=== PATIENT | female | born 1970 | race African-American/Black ===

== ENCOUNTER 2016-12-01 08:44 | Emergency (ER) | payer OTHER ==
[~2016-12-01] VITALS: Ht 149.9 cm; Wt 55.7 kg
[~2016-12-01 08:44] MED LIST: ABILIFY DISCMEL15 MG PO; ATIVAN2 MG PO; BACTRIM,SEPT1 TABLET PO; FIORICET,ESG1 TABLET PO; KEFLEX500 MG PO; KLONOPIN1 MG PO; MOTRIN600 MG PO; NAPROSYN500 MG PO; PEN-VEE K,VEET500 MG PO; PERCOCET 5/31 TABLET PO; REMERON30 M2 PO; TESSALON200 MG PO; TORADOL10 MG PO; TYLENOL WITH C1 EACH PO; ZOLOFT25 MG PO
[2016-12-01 09:22] LABS: BASOPHIL COUNT 0.1 K/uL (0-0.1); EOSINOPHIL (%) 0.6 % (0-5); EOSINOPHIL COUNT 0.1 K/uL (0-0.3); HEMATOCRIT 35.6 % (36.0-46.0); IMMATURE GRANULOCYTE COUNT 0.1 K/uL; INSTRUMENT ABS NEUTROPHIL CT 10.8 K/uL; LYMPHOCYTE COUNT 2.3 K/uL (1.0-2.8); MCH 29.3 PG (29.0-34.0); MCHC 32.3 G/DL (30.0-36.0); MCV 90.6 FL (83-99); MEAN PLAT.VOLUME 9.2 uM^3 (9.5-12.4); MONOCYTE (%) 5.1 % (3-12); MONOCYTE COUNT 0.7 K/uL (0-0.8); NEUTROPHIL (%) 76.4 % (45-76); NEUTROPHIL COUNT 10.8 K/uL (1.8-6.4); PLATELET COUNT 490 K/uL (156-360); RBC DIS.WIDTH-CV 15.8 % (11.8-14.6); RBC DIS.WIDTH-SD 52.8 % (39-53); RED BLOOD COUNT 3.93 M/uL (3.80-5.20); WHITE BLOOD COUNT 14.1 K/uL (4.1-10.2)
[2016-12-01 09:47] LABS: CHLORIDE 104 mEq/L (99-109); POTASSIUM 3.7 mEq/L (3.7-5.4); SODIUM 139 mEq/L (136-147)
[2016-12-01 09:49] LABS: GLUCOSE 92 mg/dL (70-99)
[2016-12-01 09:50] LABS: ANION GAP 15 MEQ/L (2-14)
[2016-12-01 09:52] LABS: SERUM ETHYL ALCOHOL 19 mg/dL
[2016-12-01 09:53] LABS: GFR ESTIMATE (CALCULATED) > 59 mL/min/
[2016-12-01 09:54] LABS: UREA NITROGEN (BUN) 12 mg/dL (9-23)
[2016-12-01 12:53] VITALS: BP 111/60
== END 2016-12-01 12:55 | disposition home or self-care (01) ==
LOC: EME 08:44
PROVIDERS: Emergency Medicine
DX: F10.229 Alcohol dependence with intoxication, unspecified (principal); F12.10 Cannabis abuse, uncomplicated; S40.812A Abrasion of left upper arm, initial encounter; S40.811A Abrasion of right upper arm, initial encounter; S00.81XA Abrasion of other part of head, initial encounter; S00.83XA Contusion of other part of head, initial encounter; M79.89 Other specified soft tissue disorders; M79.641 Pain in right hand; W19.XXXA Unspecified fall, initial encounter; F17.200 Nicotine dependence, unspecified, uncomplicated
CPT/HCPCS: 70450; 80048; 81003; 85025; 99281; 99284; G0480